=== PATIENT | male | born 1985 | race Caucasian/White ===

== ENCOUNTER 2019-01-15 09:26 | Emergency (ER) | payer OTHER ==
[~2019-01-15] VITALS: Ht 177.8 cm; Wt 98.3 kg
[~2019-01-15 09:26] MED LIST: AMOXICILLIN500 MG OR; AMOXICILLIN500 MG PO; AUGMENTIN500TAB PO; AUGMENTIN875TAB PO; CIPRODEX1 ML AD; DIMETAPP CL1 PO; DOXYCYCL HYC100 MG PO; FLONASE NASAL50 MCG; GENTAMICIN15 ML/BTL OP; KEFLEX500 MG PO; LORTAB 10 PO; MEDDOSEPAK PO; MOTRIN800 MG/TAB PO; MUCINEX SINUS M PO; OMNICEF300 MG PO; PERCOCET 5/325M1 TAB PO; PERCOCET1 TA4 PO; PREDNISONE20 MG PO; ZPAK PO
[2019-01-15 10:04] LABS: HEMATOCRIT 45.9 % (39.0-50.0); HEMOGLOBIN 15.5 g/dl (14.0-18.0); IMMATURE GRANULOCYTES 0.7 % (0.0-5.0); MEAN CELL VOLUME 87.6 fL CALC (80.0-100.0); MEAN CORPUSCULAR HGB 29.6 pG CALC (26.0-32.0); MEAN CORPUSCULAR HGB CONC 33.8 g/L CALC (32.0-36.0); NEUT# 3.97 thou/uL (1.82-7.42); RED BLOOD COUNT 5.24 mill/uL (4.70-6.10); RED CELL DISTRI WIDTH 12.3 % (11.5-15.5)
[2019-01-15 10:12] LABS: ALBUMIN 4.5 g/dL (3.2-5.0); ALKALINE PHOSPHATASE 83 u/l (38-126); ANION GAP 15 (6-22 (CALC)); BILIRUBIN, TOTAL 0.8 mg/dL (0.0-1.4); BUN 14 mg/dL (9-20); BUN/CREATININE RATIO 14 (12-20 (CALC)); CARBON DIOXIDE 26 mmol/l (22-30); CHLORIDE 102 mmol/l (95-108); GFR > 60 ML/MIN (>=60 (CALC)); GFR FOR AFR.AMER. > 60 ML/MIN (>=60 (CALC)); LIPASE 60 u/l (23-300); POTASSIUM 3.8 mmol/l (3.5-5.1); SGOT/AST 33 u/l (17-59); SODIUM 139 mmol/l (137-146); TOTAL PROTEIN 7.5 g/dL (6.3-8.2)
[2019-01-15 10:41] LABS: URINE BILIRUBIN - DIPSTICK NEGATIVE (NEGATIVE); URINE BLOOD DIPSTICK NEGATIVE (NEGATIVE); URINE COLOR YELLOW; URINE GLUCOSE - DIPSTICK NEGATIVE (NEGATIVE); URINE KETONE NEGATIVE (NEGATIVE); URINE LEUK ESTERASE NEGATIVE (NEGATIVE); URINE NITRITE - DIPSTICK NEGATIVE (Negative); URINE PROTEIN - DIPSTICK NEGATIVE (NEG-TRACE); URINE SPECIFIC GRAVITY <=1.005; URINE UROBILINOGEN - DIPSTICK 0.2 E.U./dL (0.2)
[2019-01-15] MEDS ORDERED: ONDANSETRON4 MG PO (11:09)
[2019-01-15] MEDS ORDERED: HYOSCYAMINE0.125 M3 PO (11:09)
[2019-01-15] MEDS ORDERED: RANITIDINE 150150 MG PO (11:10)
[2019-01-15 11:17] VITALS: BP 120/75
== END 2019-01-15 11:24 | disposition home or self-care (01) | DRG 392 ==
LOC: ED 09:26
PROVIDERS: Family Medicine
DX: K52.9 Noninfective gastroenteritis and colitis, unspecified (principal)

== ENCOUNTER 2019-09-13 | Emergency (ER) | payer OTHER ==
[~2019-09-13] MED LIST changes: +HYOSCYAMINE0.125 M3 PO; +ONDANSETRON4 MG PO; +RANITIDINE 150150 MG PO
== END 2019-09-13 14:10 | disposition home or self-care (01) | DRG 605 ==
DX: S60.221A Contusion of right hand, initial encounter (principal); W22.8XXA Striking against or struck by other objects, initial encounter; Y93.B9 Activity, other involving muscle strengthening exercises; Y92.009 Unspecified place in unspecified non-institutional (private) residence as the place of occurrence of the external cause

== ENCOUNTER 2019-12-16 01:11 | Emergency (ER) | payer OTHER ==
[~2019-12-16] VITALS: Ht 177.8 cm; Wt 77.2 kg
[2019-12-16] MEDS ORDERED: PERCOCET 5/325M1 TAB PO (02:25)
[2019-12-16] MEDS ORDERED: AMOXICILLIN500 M2 PO (02:25)
[2019-12-16 03:15] VITALS: BP 140/91
== END 2019-12-16 03:15 | disposition home or self-care (01) | DRG 159 ==
LOC: ED 01:11
DX: K04.7 Periapical abscess without sinus (principal)

== ENCOUNTER 2020-10-30 17:22 | Emergency (ER) | payer OTHER ==
[~2020-10-30] VITALS: Ht 177.8 cm; Wt 75.0 kg
[~2020-10-30 17:22] MED LIST changes: +AMOXICILLIN500 M2 PO
[2020-10-30] MEDS ORDERED: AMOX/K CLAV875 M1 PO (18:06)
[2020-10-30 18:14] VITALS: BP 133/90
== END 2020-10-30 18:25 | disposition home or self-care (01) | DRG 605 ==
LOC: ED 17:22
PROC: 0HQFXZZ Repair Right Hand Skin, External Approach (ICD-10-PCS; principal; 2020-10-30)
DX: S61.451A Open bite of right hand, initial encounter (principal); S51.851A Open bite of right forearm, initial encounter; W54.0XXA Bitten by dog, initial encounter; Y93.K9 Activity, other involving animal care; Y92.89 Other specified places as the place of occurrence of the external cause; Y99.0 Civilian activity done for income or pay

== ENCOUNTER 2021-04-24 19:45 | Emergency (ER) | payer OTHER ==
[~2021-04-24] VITALS: Ht 177.8 cm; Wt 81.0 kg
[~2021-04-24 19:45] MED LIST changes: +AMOX/K CLAV875 M1 PO
[2021-04-24 20:33] LABS: HEMATOCRIT 45.7 % (39.0-50.0); HEMOGLOBIN 15.6 g/dl (14.0-18.0); IMMATURE GRANULOCYTES 0.7 % (0.0-5.0); MEAN CELL VOLUME 88.2 fL CALC (80.0-100.0); MEAN CORPUSCULAR HGB 30.1 pG CALC (26.0-32.0); MEAN CORPUSCULAR HGB CONC 34.1 g/dL CAL (32.0-36.0); NEUT# 5.31 thou/uL (1.82-7.42); RED BLOOD COUNT 5.18 mill/uL (4.70-6.10); RED CELL DISTRI WIDTH 12.3 % (11.5-15.5)
[2021-04-24 20:44] LABS: ALBUMIN 4.6 g/dL (3.2-5.0); ALKALINE PHOSPHATASE 73 u/l (38-126); AMYLASE 60 u/l (30-110); ANION GAP 13 (6-22 (CALC)); BILIRUBIN, TOTAL 0.9 mg/dL (0.0-1.4); BUN 16 mg/dL (9-20); BUN/CREATININE RATIO 14 (12-20 (CALC)); CARBON DIOXIDE 28 mmol/l (22-30); CHLORIDE 102 mmol/l (95-108); CREATININE 1.2 mg/dL (0.7-1.3); GFR > 60 ML/MIN (>=60 (CALC)); GFR FOR AFR.AMER. > 60 ML/MIN (>=60 (CALC)); LIPASE 75 u/l (23-300); POTASSIUM 3.5 mmol/l (3.5-5.1); SGOT/AST 23 u/l (17-59); SODIUM 139 mmol/l (137-146); TOTAL PROTEIN 7.5 g/dL (6.3-8.2)
[2021-04-24] MEDS ORDERED: PROMETHAZINE HY25 M1 PO (22:09)
[2021-04-24] MEDS ORDERED: IMODIUM2 MG PO (22:09)
[2021-04-24 22:51] VITALS: BP 125/72
== END 2021-04-24 22:40 | disposition home or self-care (01) | DRG 179 ==
LOC: ED 19:45
PROVIDERS: Family Medicine
DX: U07.1 COVID-19 (principal)

== ENCOUNTER 2021-06-25 13:39 | Emergency (ER) | payer OTHER ==
[~2021-06-25] VITALS: Ht 177.8 cm; Wt 82.0 kg
[~2021-06-25 13:39] MED LIST changes: +IMODIUM2 MG PO; +PROMETHAZINE HY25 M1 PO
[2021-06-25] MEDS ORDERED: HYDROCO/APAP1 TA9 PO (15:29)
[2021-06-25] MEDS ORDERED: AMOX/K CLAV875 M1 PO (15:29)
[2021-06-25] MEDS ORDERED: ZOFRAN4 M1 PO (15:29)
[2021-06-25 15:50] VITALS: BP 124/76
== END 2021-06-25 15:51 | disposition home or self-care (01) | DRG 605 ==
LOC: ED 13:39
PROC: 0HQDXZZ Repair Right Lower Arm Skin, External Approach (ICD-10-PCS; principal; 2021-06-25)
DX: S51.851A Open bite of right forearm, initial encounter (principal); W54.0XXA Bitten by dog, initial encounter; Y93.89 Activity, other specified; Y92.9 Unspecified place or not applicable; Y99.0 Civilian activity done for income or pay